=== PATIENT | female | born 1940 | race Caucasian/White ===

== ENCOUNTER → 2021-04-18 | Outpatient (CLI) | payer MEDICARE | LOC: CPPFTMAIN 07:15 | PROVIDERS: ATTEND Family Medicine | DX: J84.9 Interstitial pulmonary disease, unspecified (principal) | CPT/HCPCS: 94060; 94726; 94729 ==

== ENCOUNTER → 2022-04-16 | Outpatient (CLI) | payer MEDICARE ==
--- NOTE | 2022-04-16 16:17 | US ---
EXAMINATION TYPE: US abdomen complete DATE OF EXAM: 04/16/2022 COMPARISON: NONE CLINICAL HISTORY: R74.8 ELEVATED LIVER ENZYMES. TECHNIQUE: Multiple sonographic images of the abdomen are obtained. FINDINGS: EXAM MEASUREMENTS: Liver Length: 13.1 cm Gallbladder Wall: 0.2 cm CBD: 0.5 cm Spleen: 8.7 cm Right Kidney: 9.9 x 4.7 x 4.5 cm Left Kidney: 10.2 x 4.6 x 4.5 cm HOURLY TEAM MEMBERS NOTES: Extensive overlying bowel gas, technically difficult limited study. Pancreas: Obscured by bowel gas Liver: homogenous as seen, not fully visualized due to overlying bowel Gallbladder: wnl Evidence for sonographic Alberto's sign: no CBD: wnl Spleen: wnl Right Kidney: No hydronephrosis or masses seen, limited views Left Kidney: No hydronephrosis or masses seen, limited views Upper IVC: wnl Abd Aorta: proximal and distal obscure by overlying bowel gas IMPRESSION: 1. No acute abnormality abdomen ultrasound.
--- NOTE | 2022-04-16 16:33 | BD ---
EXAMINATION TYPE: Axial Bone Density DATE OF EXAM: 04/16/2022 COMPARISON: NONE CLINICAL HISTORY: 82 years year old Female. ICD-10 CODE: M89.9 BONE DISORDER Height: 67 Weight: 175.2 FRAX RISK QUESTIONS: Alcohol (3 or more units per day): no Family History (Parent hip fracture): no Glucocorticoids (More than 3mos): no (Ex: prednisone, prednisolone, methylprednisolone, dexamethasone, and hydrocortisone). History of Fracture in Adulthood: yes Secondary Osteoporosis: 1. Type 1 Diabetes: no 2. Hyperthyroidism: no 3. Menopause before 45: no 4. Malnutrition: no 5. Chronic liver disease: no Rheumatoid Arthritis: no Current Tobacco Use: no RISK FACTORS HISTORY OF: History of Wrist Fracture: beti wrist When: 2009 Surgery to Spine/Hip(right/left)/Wrist (right/left): bilateral wrist When: 2009 Family History of Osteoporosis: no Active: yes Diet low in dairy products/other sources of calcium: yes Postmenopausal woman: yes Lost more than 2 inches in height since high school: yes MEDICATIONS: Thyroid Medications: synthroid How Lon years Additional History: EXAM MEASUREMENTS: Bone mineral densitometry was performed using the flux - neutrinity System. Bone mineral density as measured about the Lumbar spine is: ----- L1-L4(G/cm2): 1.066 T Score Values are as follows: ----- L1: -0.6-1.3 ----- L2: -1.3 ----- L3: -1.7 ----- L4: -0.3 ----- L1-L4: -1.0 Bone mineral density has: decreased -12.9 % since study of: 08.14.2006 Bone mineral density about the R hip (g/cm2): 0.839 Bone mineral density about the L hip (g/cm2): 0.840 T Score values are as follows: -----R Neck: -1.4 -----L Neck: -1.4 -----R Total: -1.6 -----L Total: -1.4 Bone mineral density has: decreased -2.4 % since study of: 08.14.2006 FRAX%s: The graph provided illustrates a 19.2% chance for a major osteoporotic fx and a 4.0% chance f or the hips probability for fx in 10 years time. IMPRESSION: Osteopenia (T Score between -2.5 and -1). There is slightly increased risk of fracture and the patient may be considered for treatment. Re-Screen 2-5 years. NOTE: T-SCORE=SD OF THE YOUNG ADULT MEAN.
== END | disposition home or self-care (01) ==
LOC: RADUSWWP 09:05
PROVIDERS: ATTEND Internal Medicine
DX: M85.89 Other specified disorders of bone density and structure, multiple sites (principal); R74.8 Abnormal levels of other serum enzymes
CPT/HCPCS: 76700; 77080